=== PATIENT | female | born 1980 | race Caucasian/White ===

== ENCOUNTER 2016-05-22 11:19 | Day surgery (SDC) | payer OTHER ==
[~2016-05-22] VITALS: Ht 162.6 cm; Wt 100.7 kg
[~2016-05-22 11:19] MED LIST: ACTOS45 MG PO; ADVAIR 250/501 DISK IH; FLEXERIL5 MG PO; FLOVENT 22120 INHALA IH; GLUCOPHAGE1000 MG PO; GLUCOPHAGE500 MG PO; LIPITOR10 MG PO; LYRICA100 MG PO; LYRICA150 MG PO; METHADONE5 MG PO; MOTRIN600 MG PO; NYSTATIN-TRIAMC15 GM TP; PERCOCET 5/31 TABLET PO; PERCOCET 7.51 TABLET PO; PROAIR HFA8.5 GM IH; PROVENTIL,2.5 MG/0.5 IH; PROVENTIL,2.5 MG/3 M IH; TUMS500 MG PO; VICODIN 5-3001 EACH PO
[2016-05-22 12:20] LABS: POINT-OF-CARE METER ID UU14174212
== END 2016-05-22 13:52 | disposition home or self-care (01) ==
LOC: PAIN 11:19 → SDC 12:45 → PAIN 13:52
PROVIDERS: Anesthesiology Pain Medicine
PROC: 015B3ZZ Destruction of Lumbar Nerve, Percutaneous Approach (ICD-10-PCS; principal; 2016-05-22)
DX: M47.24 Other spondylosis with radiculopathy, thoracic region (principal); F41.9 Anxiety disorder, unspecified; M25.551 Pain in right hip; M43.17 Spondylolisthesis, lumbosacral region; M51.26 Other intervertebral disc displacement, lumbar region; Z98.1 Arthrodesis status; J45.909 Unspecified asthma, uncomplicated; Z79.891 Long term (current) use of opiate analgesic; Z77.22 Contact with and (suspected) exposure to environmental tobacco smoke (acute) (chronic)
CPT/HCPCS: 82948; J1030; J2250; J3010; S0020

== ENCOUNTER 2016-06-26 13:07 | Day surgery (SDC) | payer OTHER ==
[~2016-06-26] VITALS: Ht 162.6 cm; Wt 100.7 kg
[~2016-06-26 13:07] MED LIST changes: +LEVEMIR FL100 UNIT/1 SC; +METFORMIN HCL500 MG PO
[2016-06-26 14:52] LABS: POINT-OF-CARE METER ID UU14174212; POINT-OF-CARE USER ID AHSRSCSLC11
== END 2016-06-26 15:33 | disposition home or self-care (01) ==
LOC: PAIN 13:07 → SDC 13:45 → PAIN 13:45
PROVIDERS: Anesthesiology Pain Medicine
PROC: 015B3ZZ Destruction of Lumbar Nerve, Percutaneous Approach (ICD-10-PCS; principal; 2016-06-26)
DX: M47.26 Other spondylosis with radiculopathy, lumbar region (principal); F41.9 Anxiety disorder, unspecified; M43.17 Spondylolisthesis, lumbosacral region; M51.26 Other intervertebral disc displacement, lumbar region; M25.562 Pain in left knee; Z98.1 Arthrodesis status; J45.909 Unspecified asthma, uncomplicated; M96.1 Postlaminectomy syndrome, not elsewhere classified; R06.81 Apnea, not elsewhere classified; E78.5 Hyperlipidemia, unspecified; E66.9 Obesity, unspecified; Z68.41 Body mass index [BMI] 40.0-44.9, adult; E11.65 Type 2 diabetes mellitus with hyperglycemia; Z77.22 Contact with and (suspected) exposure to environmental tobacco smoke (acute) (chronic); Z79.84 Long term (current) use of oral hypoglycemic drugs
CPT/HCPCS: 82948; J1030; J2250; J3010; S0020

== ENCOUNTER 2017-03-18 16:44 | Emergency (ER) | payer OTHER ==
[~2017-03-18] VITALS: Ht 162.6 cm; Wt 105.1 kg
[~2017-03-18 16:44] MED LIST changes: +FLEXERIL10 MG PO; -FLEXERIL5 MG PO; +FLOVENT 11120 INHALA IH; -LYRICA150 MG PO; +METFORMIN HCL500 M1 PO; -METFORMIN HCL500 MG PO; +NOVOLOG PE100 UNITS/ SC; +PREDNISONE10 MG PO; +QVAR 40 MCG IN7.3 GM IH; +SYMBICORT60 INHALA1 IH
[2017-03-18 20:56] VITALS: BP 119/74
== END 2017-03-18 20:57 | disposition home or self-care (01) ==
LOC: EME 16:44
DX: M54.6 Pain in thoracic spine (principal); G89.29 Other chronic pain; V89.2XXA Person injured in unspecified motor-vehicle accident, traffic, initial encounter; Y92.410 Unspecified street and highway as the place of occurrence of the external cause; Z98.1 Arthrodesis status
CPT/HCPCS: 72070; 99281; 99283

== ENCOUNTER 2017-03-19 10:21 | Day surgery (SDC) | payer OTHER ==
[~2017-03-19] VITALS: Ht 162.6 cm; Wt 105.2 kg
== END 2017-03-19 12:16 | disposition home or self-care (01) ==
LOC: PAIN 10:21 → SDC 11:15 → PAIN 12:16
PROVIDERS: Anesthesiology Pain Medicine
DX: M47.26 Other spondylosis with radiculopathy, lumbar region (principal); M51.16 Intervertebral disc disorders with radiculopathy, lumbar region; M48.061 Spinal stenosis, lumbar region without neurogenic claudication; M43.17 Spondylolisthesis, lumbosacral region; E78.5 Hyperlipidemia, unspecified; M79.1 Myalgia; E11.40 Type 2 diabetes mellitus with diabetic neuropathy, unspecified; E66.9 Obesity, unspecified; Z68.39 Body mass index [BMI] 39.0-39.9, adult; M96.1 Postlaminectomy syndrome, not elsewhere classified; Z77.22 Contact with and (suspected) exposure to environmental tobacco smoke (acute) (chronic); Z79.4 Long term (current) use of insulin; Z79.891 Long term (current) use of opiate analgesic
CPT/HCPCS: 82948; J1100; J1885; J2250; J3010

== ENCOUNTER 2017-04-16 08:39 | Day surgery (SDC) | payer OTHER ==
[~2017-04-16] VITALS: Ht 162.6 cm; Wt 105.2 kg
[2017-04-16] MEDS ORDERED: VENTOLIN HFA18 GM IH (09:27)
== END 2017-04-16 11:15 | disposition home or self-care (01) ==
LOC: PAIN 08:39 → SDC 11:45 → PAIN 11:45
PROVIDERS: Anesthesiology Pain Medicine
DX: M47.26 Other spondylosis with radiculopathy, lumbar region (principal); M51.16 Intervertebral disc disorders with radiculopathy, lumbar region; M43.16 Spondylolisthesis, lumbar region; M79.1 Myalgia; E11.65 Type 2 diabetes mellitus with hyperglycemia; E11.40 Type 2 diabetes mellitus with diabetic neuropathy, unspecified; E78.5 Hyperlipidemia, unspecified; K21.9 Gastro-esophageal reflux disease without esophagitis; E66.9 Obesity, unspecified; Z68.39 Body mass index [BMI] 39.0-39.9, adult; J45.909 Unspecified asthma, uncomplicated; Z79.4 Long term (current) use of insulin; Z79.891 Long term (current) use of opiate analgesic; Z77.22 Contact with and (suspected) exposure to environmental tobacco smoke (acute) (chronic)
CPT/HCPCS: 82948; J1030; J1100; J2250; J3010